=== PATIENT | female | born 1965 | race Caucasian/White ===

== ENCOUNTER 2022-08-18 03:15 | Emergency (ER) | payer BC, OTHER ==
[2022-08-18 03:31] LABS: O2 DELIVERY DEVICE NASAL CANNULA
[2022-08-18 03:32] LABS: BASOPHILS ABSOLUTE AUTO 0.03 K/uL (0.00-0.20); BASOPHILS PERCENT AUTO 0.3 % (0.0-2.0); EOSINOPHILS ABSOLUTE AUTO 0.15 K/uL (0.00-0.50); EOSINOPHILS PERCENT AUTO 1.7 % (0.0-5.0); HEMATOCRIT 34.3 % (34.0-46.0); HEMOGLOBIN 11.7 g/dL (11.7-15.5); LYMPHOCYTES ABSOLUTE AUTO 3.66 K/uL (0.50-3.50); LYMPHOCYTES PERCENT AUTO 41.7 % (10.0-50.0); MEAN CORPUSCULAR HGB CONC 34.1 g/dL (31.7-36.0); MONOCYTES ABSOLUTE AUTO 0.67 K/uL (0.00-1.00); MONOCYTES PERCENT AUTO 7.6 % (2.0-14.0); NEUTROPHILS ABSOLUTE AUTO 4.27 K/uL (1.40-7.00); NEUTROPHILS PERCENT AUTO 48.7 % (45.0-80.0); PLATELET COUNT,PLT 303 K/uL (150-350); RED BLOOD CELL COUNT 3.77 M/uL (3.77-5.09); RED CELL DISTRIBUTION WIDTH 12.8 % (11.2-14.1); WHITE BLOOD CELL COUNT,WBC 8.8 K/uL (4.0-10.2)
[2022-08-18 03:33] LABS: PCO2 VENOUS 30 mmHG (41-51); PH,VENOUS 7.52 (7.31-7.41); PO2 VENOUS 40 mmHG
[2022-08-18 03:34] LABS: BASE EXCESS VENOUS 3 mmol/L ((-2)-3); BICARBONATE,VENOUS 25 mmol/L (23-28); O2 SATURATION VENOUS 81 %
[2022-08-18] MEDS: LORazepam 2 MG/ML SDV IVPUSH ONE ×2 (03:36→06:10)
[2022-08-18 03:42] LABS: ALANINE AMINOTRANSFERASE,ALT 42 U/L (12-78); ALBUMIN 3.4 g/dL (3.4-5.0); ALKALINE PHOSPHATASE 101 IU/L (46-116); ANION GAP 11.5 meq/L (7-15); ASPARTATE AMNIOTRANSFERASE,AST 16 U/L (15-37); BILIRUBIN TOTAL 0.3 mg/dL (0.2-1.0); BLOOD UREA NITROGEN,BUN 18 mg/dL (7-18); CALCIUM 8.8 mg/dL (8.5-10.1); CARBON DIOXIDE,CO2 26.8 mmol/L (21.0-32.0); CHLORIDE,CL 103 mmol/L (98-107); CREATINE KINASE,CK 141 U/L (26-308); CREATININE 1.08 mg/dL (0.51-1.17); ESTIMATED GFR 61 mL/min (>=60); GLUCOSE RANDOM 96 mg/dL (70-99); POTASSIUM,K 3.3 mmol/L (3.5-5.1); PROTEIN TOTAL,TP 6.8 g/dL (6.4-8.2); SODIUM,NA 138 mmol/L (136-145)
[2022-08-18 03:55] LABS: PROTHROMBIN TIME 9.6 SEC (9.0-11.1)
[2022-08-18] MEDS: Sodium Chloride 0.9% 1,000 ML IV ONE (04:23)
[2022-08-18] MEDS: Cyproheptadine 4 MG Tab PO ONE (06:10)
== END 2022-08-18 04:40 ==
LOC: LL.ED 03:15
DX: T43.221A Poisoning by selective serotonin reuptake inhibitors, accidental (unintentional), initial encounter (principal); Z88.5 Allergy status to narcotic agent; Z79.899 Other long term (current) drug therapy
CPT/HCPCS: 36415; 70450; 71045; 80053; 80143; 82550; 82803; 83605; 84484; 85025; 85610; 93005; 93010; 96374; 99284; 99285-25; J2060; J7030